=== PATIENT | male | born 1950 | race Caucasian/White ===

== ENCOUNTER 2019-09-05 06:25 | Day surgery (SDC) | payer OTHER ==
[2019-10-09] MEDS ORDERED: VASOTEC10 MG PO (14:07)
[2019-10-09] MEDS ORDERED: COUMADIN5 MG PO (14:07)
[2019-10-09] MEDS ORDERED: CRESTOR20 MG PO (14:08)
[2019-10-09] MEDS ORDERED: CARVEDILOL25 MG PO (14:08)
[2019-10-09] MEDS ORDERED: ADALAT CC60 MG PO (14:08)
[2019-10-09] MEDS ORDERED: ASPIR 8181 MG PO (14:09)
[2019-10-09] MEDS ORDERED: PRESERVISION A1 EAC1 PO (14:09)
== END 2019-09-05 11:05 | disposition home or self-care (01) ==
LOC: AMB-ENDOS 06:25
DX: D12.3 Benign neoplasm of transverse colon (principal); K64.2 Third degree hemorrhoids

== ENCOUNTER 2019-10-15 06:00 | Day surgery (SDC) | payer OTHER ==
[~2019-10-15 06:00] MED LIST: ADALAT CC60 MG PO; ASPIR 8181 MG PO; CARVEDILOL25 MG PO; COUMADIN5 MG PO; CRESTOR20 MG PO; PRESERVISION A1 EAC1 PO; VASOTEC10 MG PO
== END 2019-10-15 15:40 | disposition home or self-care (01) ==
LOC: CIR.AMB 06:00
DX: K64.8 Other hemorrhoids (principal); K64.1 Second degree hemorrhoids; K64.4 Residual hemorrhoidal skin tags